=== PATIENT | male | born 1950 | race Caucasian/White ===

== ENCOUNTER 2017-02-16 17:46 | Emergency (ER) | payer MEDICARE, BC ==
[~2017-02-16] VITALS: Ht 165.1 cm; Wt 77.1 kg
--- NOTE | ~2017-02-16 | US85 ---
[facility] A Service of [facility] & [facility] RADIOLOGY TEXT RESULTS PATIENT: RUBEN KU LOCATION: [facility] : 48 UNIT #: [id number] AGE: [address]: Jo Ann Kimbrough MD SEX: M ORDER DR: [id number] [facility] [address] [place], [place] [address] [id number] MR#: [id number] Acc #: [id number] NAME: RUBEN KU : 1950 SEX: M STUDY DATE/TIME: 02/16/2017 18:50 UNIT: FELIC[facility] ROOM: STUDY DESCRIPTION: [facility] [employer] [facility] Attending Physician: Jo Ann Kimbrough M.D. Ordering Physician: Jo Ann Kimbrough M.D. Primary Care Physician: Primary Care Physician No MEDICAL IMAGING REPORT This report is preliminary unless electronic signature is present EXAM Right lower extremity venous Doppler. HISTORY Right leg pain for several months. FINDINGS 2-D abdomen Doppler evaluation of right lower extremity demonstrates normal flow and compressibility of the major veins of the right lower extremity. No intraluminal thrombus identified. IMPRESSION No sonographic evidence of DVT. Dictated by... Umu Siegel M.D. THIS IS AN ELECTRONICALLY VERIFIED REPORT Umu Siegel M.D. at 02/16/2017 10:04 PM ABDULLAHI/tabatha TD: 02/16/2017 21:28 JOB #: [id number] MEDICAL IMAGING REPORT Page 1 of 1 COPY
--- NOTE | ~2017-02-16 | EKG ---
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
--- NOTE | ~2017-02-16 | CR72 ---
[facility] A Service of [facility] & [facility] RADIOLOGY TEXT RESULTS PATIENT: RUBEN KU LOCATION: [facility] : 48 UNIT #: [id number] AGE: [address]: Jo Ann Kimbrough MD SEX: M ORDER DR: [id number] [id number] [place], [place] [address] [id number] E MR#: [id number] Acc #: [id number] NAME: RUBEN KU : 1950 SEX: M STUDY DATE/TIME: 02/16/2017 19:26 UNIT: [facility] ROOM: STUDY DESCRIPTION: CR Chest Single View Portable Attending Physician: Jo Ann Kimbrough M.D. Ordering Physician: Jo Ann Kimbrough M.D. Primary Care Physician: Primary Care Physician No MEDICAL IMAGING REPORT This report is preliminary unless electronic signature is present EXAM Portable chest HISTORY Cough and shortness of air for 3 days. COMPARISON 05/01/2016 FINDINGS Portable view of the chest demonstrates cardiomegaly without failure. No infiltrates or effusions. Multiple old healed right rib fractures. No pneumothorax. Dictated by... Umu Siegel M.D. THIS IS AN ELECTRONICALLY VERIFIED REPORT Umu Siegel M.D. at 02/16/2017 10:05 PM [place] TD: 02/16/2017 21:43 JOB #: [id number] MEDICAL IMAGING REPORT Page 1 of 1 COPY
[~2017-02-16 17:46] MED LIST: ALBUTEROL17 GM INH; ASPIRIN81 M2 PO; COUMADIN5 MG PO; CYANOCOBALAM1000 MCG PO; HYDROCORTISONE TOP; LASIX20 MG PO; LIPITOR40 MG PO; LOPRESSOR PO; MULTI-VITAMIN1 EAC1 PO; NORCO 10-325 TA1 TAB PO; POTASSIUM CHLO20 ME1 PO; SENNA-DOCUSATE PO; SENNA-S TABLET1 EAC1 PO; SEROQUEL50 MG PO; XANAX1 MG PO
[2017-02-16 18:50] LABS: POC - CKMB 1.6 ng/mL (0.0-7.9); POC - TROPONIN <0.05 ng/mL (<=0.05)
[2017-02-16 18:56] LABS: BASOPHIL# 0.1 X10e3 (0-0.3); BASOPHIL% 0.9 % (0-2.5); EOSINOPHIL# 0.4 X10e3 (0-0.7); EOSINOPHIL% 3.8 % (0.0-7.0); HEMATOCRIT 37.7 % (38.0-50.0); HEMOGLOBIN 12.3 gm/dL (13.0-16.0); LYMPHOCYTE# 1.4 X10e3 (1.0-3.5); LYMPHOCYTE% 14.1 % (17.0-45.0); MEAN CELL VOLUME 90.7 FL (83-96); MEAN CORPUSCULAR HEMOGLOBIN 29.5 PG (28-34); MEAN CORPUSCULAR HGB CONC 32.5 g/dL (30-36); MEAN PLATELET VOLUME 8.1 FL (6.5-11.5); MONOCYTE# 0.7 X10e3 (0-1.0); MONOCYTE% 7.4 % (3.0-12.0); NEUTROPHIL# 7.3 X10e3 (1.5-7.1); NEUTROPHIL% 73.8 % (40-75); PLATELET COUNT 278 X10e3 (140-420); RED BLOOD COUNT 4.16 X10e (3.90-5.60); RED CELL DISTRIBUTION WIDTH 13.8 % (11.0-15.5); WHITE BLOOD COUNT 9.8 X10e3 (4.0-10.5)
[2017-02-16 19:00] LABS: DIFF IND NO
[2017-02-16 19:11] LABS: INR 3.8; PARTIAL THROMBOPLASTIN TIME 57.3 SECONDS (23.5-31.3); PROTHROMBIN TIME (PATIENT) 41.2 SECONDS (10.0-11.7)
[2017-02-16 19:18] LABS: ALBUMIN SERUM 3.1 g/dL (3.5-5.0); BILIRUBIN, DIRECT 0.1 mg/dL (0.0-0.2); BILIRUBIN,INDIRECT 0.4 mg/dL (0.0-0.9); BILIRUBIN,TOTAL 0.5 mg/dL (0.2-2.0); BUN/CREATININE RATIO 14.61; CALCIUM SERUM 8.5 mg/dL (8.4-10.2); CREATININE SERUM 1.3 mg/dL (0.6-1.4); GLOM FILT RATE Estimated 56.5 mL/min (>60); POTASSIUM 3.2 mmol/L (3.5-5.1); PROTEIN TOTAL SERUM 6.8 g/dL (6.0-8.3)
[2017-02-16] MEDS ORDERED: FERROUS GLUCON324 M1 PO (20:31)
[2017-02-16] MEDS ORDERED: ALTOPREV40 MG PO (20:31)
[2017-02-16] MEDS ORDERED: POTASSIUM CHLO10 ME1 PO (20:33)
[2017-02-16] MEDS ORDERED: METOPROLOL SUCC25 MG PO (20:34)
[2017-02-16] MEDS ORDERED: CITALOPRAM HBR40 MG PO (20:35)
== END 2017-02-16 20:55 | disposition home or self-care (01) ==
LOC: CED 17:46
PROVIDERS: Student in an Organized Health Care Education/Training Program
DX: J40 Bronchitis, not specified as acute or chronic (principal); M79.672 Pain in left foot; M79.651 Pain in right thigh; I11.0 Hypertensive heart disease with heart failure; I50.9 Heart failure, unspecified; E78.5 Hyperlipidemia, unspecified
CPT/HCPCS: 36415; 71010; 80048; 80076; 82553; 83880; 84484; 85025; 85610; 85730; 87040; 93005; 93971; 94640; 99285